=== PATIENT | female | born 1965 | race American Indian/Alaskan Native ===

== ENCOUNTER 2024-11-15 14:50 | Inpatient (IN) | payer MEDICAID ==
[~2024-11-15] VITALS: Ht 165.1 cm; Wt 74.8 kg
[~2024-11-15 14:50] MED LIST: NO HOME MEDS
--- NOTE | 2024-11-15 15:00 | ELECTROCARDIOGRAPH REPORT ---
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
[2024-11-15 15:13] LABS: BASOPHILS # (AUTO) 0.1 X10'3 (0-0.2); BASOPHILS % (AUTO) 0.5 % (0-1); EOSINOPHILS % (AUTO) 0.1 % (0-6); HEMOGLOBIN 14.6 g/dl (12.0-16.0); LYMPHOCYTES # (AUTO) 1.8 X10'3 (1.1-4.8); LYMPHOCYTES % (AUTO) 10.9 % (21-51); MEAN CORPUSCULAR HEMOGLOBIN 32.2 PG (27.0-31.0); MEAN CORPUSCULAR HGB CONC 33.9 g/dL (33.0-36.5); MEAN PLATELET VOLUME 9.2 FL (7.4-10.4); MONOCYTES # (AUTO) 0.8 X10'3 (0-0.9); NEUTROPHILS # (AUTO) 13.7 X10'3 (1.8-7.7); NEUTROPHILS % (AUTO) 83.5 % (42-75); PLATELET COUNT 189 X10'3 (140-440); RED BLOOD COUNT 4.52 X10'6 (4.20-5.60); RED CELL DISTRIBUTION WIDTH 14.9 % (11.5-14.5); WHITE BLOOD COUNT 16.4 X10'3 (4.5-11.0)
--- NOTE | 2024-11-15 15:29 | RADIOLOGY REPORT ---
CHEST RADIOGRAPH Indication: CP Technique: Single frontal view of the chest was obtained Comparison: None FINDINGS: Lines and Tubes: None Lungs: No focal consolidation. Interstitial prominence. Pleura: No effusion. No pneumothorax. Cardiomediastinal contours: Unremarkable Bones: No acute osseous abnormality. IMPRESSION: Mild pulmonary vascular congestion.
[2024-11-15 15:32] LABS: ALANINE AMINOTRANSFERASE 22 U/L (12-78); ALBUMIN 3.2 G/DL (3.4-5.0); ALKALINE PHOSPHATASE 73 IU/L (46-116); ANION GAP 11 (8-16); ASPARTATE AMINO TRANSFERASE 22 U/L (10-37); BILIRUBIN,TOTAL 0.5 MG/DL (0.1-1.0); BLOOD UREA NITROGEN 10 MG/DL (7-18); BUN/CREATININE RATIO 15.9 (10.0-20.0); CALCIUM 7.7 MG/DL (8.5-10.1); CHLORIDE 108 MMOL/L (99-107); CREATININE 0.63 MG/DL (0.40-0.90); GLUCOSE 105 MG/DL (70-104); POTASSIUM 3.8 MMOL/L (3.5-5.1); SODIUM 143 MMOL/L (135-145); TOTAL CARBON DIOXIDE 23.8 MMOL/L (24-32); TOTAL PROTEIN 6.4 G/DL (6.4-8.2); eCRCL 88 ML/MIN; eGFR > 90 ML/MIN
[2024-11-15 15:40] LABS: PRO BRAIN NATRIURETIC PEPTIDE 2027 PG/ML (0-125)
--- NOTE | 2024-11-15 17:30 | Physician Documentation ---
History of Present Illness Chief Complaint: Nausea Stated Complaint: ELEVATED TROP Time Seen by MD: 16:16 Primary Medical Doctor: Dr. Ramirez Mode of Arrival: EMS, Stretcher HPI 59 year old female presented after being transferred from [facility] in [place] after she was diagnosed with a NSTEMI. She woke up this morning and experienced an episode of abdominal discomfort, cold sweats, and nausea, and during the course of her workup she was noted to have an elevated troponin. She has a history of allergies to many anticoagulants from her prior bout with a blood clot and no heparin was started, perhaps for this reason. She denies any fevers, cough, chest pain, diarrhea. Medication Reconciliation Allergies: Coded Allergies: albuterol (Verified Allergy, Mild, UNKNOWN, 11/15/24) apixaban (Verified Allergy, Mild, UNKNOWN, 11/15/24) dabigatran etexilate (Verified Allergy, Mild, SOB, 11/15/24) rivaroxaban (Verified Allergy, Mild, UNKNOWN, 11/15/24) warfarin (Verified Allergy, Mild, SOB, 11/15/24) codeine (Verified Allergy, Unknown, 12/05/13) Miscellaneous Medications Home Med List (No Home Medications), (Reported) Past Medical History Past Medical History: Seizures Alcohol Use: None Drug Use: marijuana Lives with: Family Lives In: Home Review of Systems All Other Systems at this time: Reviewed and Negative Physical Exam Vital Signs: RN Vital Signs have been reviewed: Yes, Temperature: 98.3, Source: Oral, Heart Rate: 68, Respiratory Rate: 16, BP: 90/72, Pulse Oximetry: 95, Weight: 74.800 Oxygen Flow Rate: 0 Physical Exam HEENT: PERRL, moist oral mucosa, EOMI Pulmonary: No respiratory distress Cardiac: RRR, no murmur, rub or gallop GI: nondistended, soft, nontender, no guarding, no rebound MSK: no deformity Skin: w/d/i, no rash Neuro: alert, nonfocal Psych: normal affect Progress Results/Orders Results/Orders Orders - MARCELINO REDDING MD Chest,Single View (11/15/24 14:58) Monitor (11/15/24 14:58) Saline Lock (11/15/24 14:58) Oxygen (11/15/24 14:58) Hs Troponin I W Calculations (11/15/24 16:58) Hs Troponin I W Calculations (11/15/24 17:58) Page Hospitalist (11/15/24 ) Ct Head (11/15/24 17:21) Completed Orders - MARCELINO REDDING MD Chest,Single View (11/15/24 14:58) Cbc/Diff (11/15/24 14:58) BMP (11/15/24 14:58) PBNP (11/15/24 14:58) Electrocardiogram (11/15/24 14:58) Hs Troponin I W Calculations (11/15/24 14:58) CMP (11/15/24 14:58) Vital Signs 11/15/24 11/15/24 11/15/24 14:53 15:38 15:38 Temp 98.3 Pulse 71 68 Resp 16 16 16 B/P (MAP) 104/77 90/72 (78) Pulse Ox 95 95 O2 Flow Rate 0 0 Laboratory Tests Test 11/15/24 15:06 11/15/24 17:00 White Blood Count 16.4 H Red Blood Count 4.52 Hemoglobin 14.6 Hematocrit 43.0 Mean Corpuscular Volume 95.0 Mean Corpuscular Hemoglobin 32.2 H Mean Corpuscular Hemoglobin Concent 33.9 Red Cell Distribution Width 14.9 H Platelet Count 189 Mean Platelet Volume 9.2 Neutrophils (%) (Auto) 83.5 H Lymphocytes (%) (Auto) 10.9 L Monocytes (%) (Auto) 5.0 Eosinophils (%) (Auto) 0.1 Basophils (%) (Auto) 0.5 Neutrophils # (Auto) 13.7 H Lymphocytes # (Auto) 1.8 Monocytes # (Auto) 0.8 Eosinophils # (Auto) 0.0 Basophils # (Auto) 0.1 CBC Comment Sodium Level 143 Potassium Level 3.8 Chloride Level 108 H Carbon Dioxide Level 23.8 L Anion Gap 11 Blood Urea Nitrogen 10 Creatinine 0.63 Estimated GFR/1.73 m2 > 90 BUN/Creatinine Ratio 15.9 Glucose Level 105 H Calcium Level 7.7 L Total Bilirubin 0.5 Aspartate Amino Transf (AST/SGOT) 22 Alanine Aminotransferase (ALT/SGPT) 22 Alkaline Phosphatase 73 Troponin I High Sensitivity 2993 *H Pro-B-Type Natriuretic Peptide 2027 H Total Protein 6.4 Albumin 3.2 L Globulin 3.2 Albumin/Globulin Ratio 1.0 L Chemistry Comments Medical Decision Making Findings 59 year old female with epigastric discomfort transferred here for higher level of cardiology care. Offered to start heparin but patient and her family member were very nervous given her prior episodes of allergies to anticoagulants in the past. Indeed her troponin and BNP were elevated here today and care was transferred to the hospitalist for further workup. Her EKG was reviewed and by my interpretation demonstrated a normal sinus rhythm at a rate of 75, no STEMI criteria and no dysrhythmias noted. I am adding a CT head to her workup as on further questioning she reports a severe headache this morning. Differential Dx:Considerations: Include: Appendicitis, Cholelithasis, Esophagitis, Gastritis/PUD, Ischemic bowel, Pancreatitis, Urinary obstruction, Urinary tract infection Additional Comments Ddx includes NSTEMI, ACS/AR Departure Disposition: 09 ADMITTED INPATIENT Admitted to Inpatient Unit: to hospitalist Admission Level of Care: Med/Surg with Tele Impression: Primary Impression: NSTEMI (non-ST elevated myocardial infarction) Condition: Stable Referrals: NO PRIMARY CARE PROVIDER (PCP) Education Educated: Patient, Family Educated regarding: diagnosis, treatment, prognosis, need for follow up Signature Scribe Signature: . Attestation: . MARCELINO REDDING MD Nov 15, 2024 17:30
[2024-11-15] MEDS ORDERED: magnesium sulf-water 2g/50mL 50 ML IV PRN (18:00)
[2024-11-15] MEDS ORDERED: magnesium sulf-water 4G/100mL 100 ML IV PRN (18:00)
[2024-11-15] MEDS ORDERED: ondansetron/PF 4mg/2ml inj IV PRN (18:00)
[2024-11-15] MEDS ORDERED: acetaminophen 325mg tablet PO PRN ×2 (18:00)
[2024-11-15] MEDS ORDERED: magnesium Cl slow-release 64mg tablet PO PRN (18:00)
[2024-11-15] MEDS ORDERED: potassium Cl 40MEQ/1/2NS 520ml 520 ML IV PRN (18:00)
[2024-11-15] MEDS ORDERED: potassium Cl 20 mEq SR tablet PO PRN ×2 (18:00)
[2024-11-15] MEDS ORDERED: HYDR-3965 PO (18:04)
[2024-11-15] MEDS ORDERED: ARA20T PO (18:04)
[2024-11-15] MEDS ORDERED: ESCI-8 PO (18:05)
[2024-11-15] MEDS ORDERED: PRED5TAB PO (18:07)
[2024-11-15] MEDS ORDERED: CYCL-394 PO (18:07)
--- NOTE | 2024-11-15 18:49 | RADIOLOGY REPORT ---
CT CT HEAD Indication: headache EXAM DATE: 11/15/2024 05:49 PM COMPARISON: None TECHNIQUE: CT of the head without intravenous contrast. RADIATION DOSE: CTDIvol: 43 mGy, DLP: 709 mGy*cm FINDINGS: There is tiny amount of hyperdensity along the right frontal cerebral sulci. There is no extra-axial fluid, mass, mass effect or midline shift. The ventricles are midline and normal in size. Basilar cis terns are patent. There are mild periventricular and subcortical white matter chronic microvascular i schemic changes. The paranasal sinuses and mastoids are well-pneumatized. Imaged portion of the orbits are unremarkabl e. IMPRESSION: Tiny amount of hyperdensity along the right frontal cerebral sulci could represent artifact versus sm all amount of subarachnoid hemorrhage. Recommend MRI brain and follow-up CT head in 2-4 hours to maryam luate. Mild chronic microvascular ischemic changes.
--- NOTE | 2024-11-15 18:50 | HISTORY AND PHYSICAL-Residence ---
History & Physical Providers to Resident Creating Document: MERRY OLSON RES ~ History of Present Illness Primary Medical Doctor: Dr. Ramirez Reason for Admit\Complaint: elevated trops History of Present Illness 59-year-old female with history of rheumatoid arthritis and SLE he has been transferred from [facility] with concern of elevated troponin requiring higher level of care. Patient initially presented to the hospital at [facility] with complaints of headache, body aches diarrhea and vomiting. Denies fever, chills, chest pain, dizziness, palpitations, shortness of breath. No recent history of travel or camping. On evaluation she states she has been having lower abdominal pain x3 days. She also has associated back pain. Her last bowel movement was this morning, has been having loose stools. Recently used a course of antibiotics for UTI. She has persistent nausea and vomiting, nine episodes of vomiting in the last 24 hours. Does not drink alcohol. Smokes around pack of cigarettes for four days. Uses cannabis HS for sleeping. Discussed advanced care directives and wishes to be a full code. ED course at [facility]: Initial working diagnosis was viral gastroenteritis. Was given IV antiemetics. Labs showed marked leukocytosis negative for COVID and flu. EKG was done which showed irregular heart rate NSR with PAC. There was also T-wave inversion in V1-V2, RSR in V1 and QRS duration within normal limits. Troponin showed marked elevation 1.79. They were thinking possibility of myocarditis secondary to viral infection. She is also on chronic leflunomide and prednisolone. Possible atypical presentation of NSTEMI was also considered. Hypotension was treated with clonidine 0.1 mg. Blood cultures were obtained no antibiotics given. Was transferred to [facility] for higher level of care. Allergies: Coded Allergies: enoxaparin (Verified Allergy, Intermediate, SOB, 11/15/24) albuterol (Verified Allergy, Mild, UNKNOWN, 11/15/24) apixaban (Verified Allergy, Mild, UNKNOWN, 11/15/24) dabigatran etexilate (Verified Allergy, Mild, SOB, 11/15/24) rivaroxaban (Verified Allergy, Mild, UNKNOWN, 11/15/24) warfarin (Verified Allergy, Mild, SOB, 11/15/24) codeine (Verified Allergy, Unknown, 12/05/13) Home Medications Home Medications Active Reported Cyclobenzaprine HCl 10 Mg Tablet 5 Mg PO Q8H 30 Days Prednisone* (Prednisone) 5 Mg Tablet 1 Tab PO DAILY 30 Days Escitalopram Oxalate 10 Mg Tablet 1 Tab PO DAILY 30 Days Leflunomide 20 Mg Tablet 10 Mg PO DAILY 30 Days Cologne 5/325 MG (Acetaminophen/Hydrocodone Bitart) 5 Mg/325 Mg Tablet 1 Tab PO Q6H PRN Past Medical History Past Medical History Rheumatoid arthritis SLE Past Social History Alcohol Use: None Drug Use: Marijuana Lives with: Family Lives In: Home ROS All Other Systems: Reviewed and Negative ROS Reviewed in full. All negative except for pertinent positive HPI. Exam Vitals: Vital Signs Date Time Temp Pulse Resp B/P (MAP) Pulse Ox O2 Delivery O2 Flow Rate FiO2 11/15/24 18:09 98.3 78 16 136/81 (99) 97 0 General: General: Awake and Alert, no acute distress. HEENT: Conjunctiva pink, Sclera clear, Mucus Membranes moist. Neck: Supple without masses and tenderness. Resp: Unlabored. Equal breath sounds bilaterally. Heart: Regular rhythm, normal S1 and S2, no rub, murmur or gallop. Abdomen: Lower abdominal pain and tenderness. Normal bowel sounds x4. No guarding or rigidity Extremities: Normal ROM, no swelling, nontender. No cyanosis,clubbing or edema. 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 Skin: Warm and Dry. Diagnostic Data Last Recorded Lab Results: 11/15/24 1506 11/15/24 1506 Diagnostic Data: Laboratory Tests Test 11/15/24 15:06 D-Dimer 1.40 MG/L FEU (0-0.50) H D-Dimer Comment Advance Care Planning Advanced Care plannin - 30 Minutes Additional Plan 59-year-old female with history of rheumatoid arthritis and SLE he has been transferred from [facility] with concern of elevated troponin requiring higher level of care. Significantly elevated troponins Severe allergy to Eliquis, Xarelto, codeine, dabigatran, enoxaparin and warfarin (allergy resulting in anaphylactic shock and coding in the past) Denies chest pain, shortness of breath or palpitations EKG no ST/T-wave changes noted Troponins 2993, 3351 BNP 2026 no signs of fluid overload Dr. Quintero talked to old testament professor Dr. Blanca Ragland, has been unable to start heparin or Lovenox at this time due to concern for allergy, recommended that the alternative would be bivalirudin. At this time bivalirudin is not available at our pharmacy, working on ordering the drug. Leukocytosis Gastroenteritis Stool testing done at [facility] negative for C diff, Entamoeba, Giardia, norovirus, rotavirus, Salmonella, vibrio. She has been having nausea vomiting and diarrhea IV fluid resuscitation Empiric antibiotics IV ceftriaxone History of SLE History of rheumatoid arthritis On prednisolone and leflunomide Merry Olson MD. IM Resident PGY-2 Date of Service: Nov 15, 2024 Billing Provider: JUNIOR QUINTERO MD Common Visit Codes: 88617-[id number] INP/OBS CARE (HIGH) Secondary Visit Codes: 79134-[id number] CARE PLAN 30 MINUTES MERRY OLSON, NAHUM Nov 15, 2024 18:50 JUNIOR QUINTERO MD Nov 17, 2024 18:37
[2024-11-15] MEDS: CefTRIAXone 2gm/D5W 50ml BAG 50 ML IV ONE (19:22)
[2024-11-15] MEDS: nicotine 14mg patch - 24hr TD SCH (19:22)
[2024-11-15] MEDS: HYDROcodone/acetaminophen 5mg/325mg tablet PO PRN (19:22)
[2024-11-15] MEDS: normal saline 1000ml 1,000 ML IV SCH (19:23)
[2024-11-15 20:29] VITALS: BP 128/93; PULSE 77; TEMP 98.3; O2SAT 97
[2024-11-15 20:40] VITALS: RESP 16
--- NOTE | 2024-11-15 21:11 | RADIOLOGY REPORT ---
EXAM: CT CT HEAD INDICATION: SAH RULE OUT F/U TO SCAN EARLIER TECHNIQUE: CT of the head without intravenous contrast. Radiation Dose Information: CT Dose: CTDI volume is 40.5 mGy. Dose-length product is 665.01 mGy*cm The dose indicators for CT are the volume Computed Tomography (CT) Dose Index (CTDIvol) and the Dose Length Product (DLP), and are measured in units of mGy and mGy-cm, respectively. These indicators are not patient dose, but values generated from the CT scanner acquisition factors. The report includes radiation exposure data for exposures received during this examination. COMPARISON: CT CT HEAD on DOS: 11/15/24 FINDINGS: There is no significant change in appearance of a tiny amount of hyperdensity along the right frontal cerebral sulci, which again may be referable to artifact or trace subarachnoid hemorrhage. The ventricles, sulci and cisterns are age appropriate. The ca-white differentiation is intact. Patchy periventricular and subcortical white matter hypoattenuation is nonspecific but may be related to small vessel ischemic disease. The visualized paranasal sinuses and mastoid air cells are clear. The surrounding soft tissues and osseous structures are unremarkable. IMPRESSION: 1. No significant change in appearance of a tiny amount of hyperdensity along the right frontal cereb ral sulci, which again may be referable to artifact or trace subarachnoid hemorrhage. If clinically i ndicated, MRI may be beneficial in further assessment. 2. Microvascular changes.
--- NOTE | 2024-11-15 21:31 | CONSULTATION REPORT ---
Cardiac Consultation Report Providers to CC ~ Progress Note: 59yo woman with HTN, HLD, RA, h/o PE, tobacco use admitted to [facility], transferred for elevated troponin. Accompanied by her son. States she had a UTI last week, was treated with antibiotics for 3 days, however, states symptoms did not improve. Over the last few days has noticed increased abdominal pain, nausea, diarrhea, chills. States yesterday woke up with diarrhea, in a sweat. Denies any CP, worsening SOB, dizziness/LH, bleeding, lower-extremity edema. Subjective Subjective In the interim, states she is in more pain today due to not taking her home pain medications. Objective Vitals Vital Signs Date Time Temp Pulse Resp B/P (MAP) Pulse Ox O2 Delivery O2 Flow Rate FiO2 11/15/24 20:40 16 11/15/24 20:29 98.3 77 128/93 (105) 97 0 Lab Results: 11/15/24 1506 11/15/24 1506 Objective GENERAL: Awake, alert, NAD CV:Reg rhythm, normal rate. No murmurs LUNGS: ++Coarse BS b/l GI: +BS soft. . EXT: 2+ radial pulses, no edema PSYCH: cooperative Coagulation Studies Laboratory Tests Test 11/15/24 15:06 D-Dimer 1.40 MG/L FEU (0-0.50) H D-Dimer Comment Problem\Assessment\Plan Problems/Diagnosis: (1) Elevated troponin Assessment & Plan: Unclear etiology. Elevated trop, flat. No CP, no acute EKG changes. Has numerous allergies to anti-PLT and anticoagulation including heparin/lovenox. CT Head with concern of possible subarachnoid hemorrhage. --Recommend holding anti-PLT/anticoagulation given concerns on CT. Pending MRI brain --If no acute bleed, can attemp Bivalirudin given lovenox/heparin allergies --Cont statin, BBx if BP tolerates --Discussed with pt/son, do not wish to proceed with angiogram/anti-plt at this time MAHESH DEVRIES MD Nov 15, 2024 21:31
[2024-11-16] MEDS ORDERED: CefTRIAXone/D5W-Rocephin 1gm 50 ML IV SCH (08:00)
--- NOTE | 2024-11-16 18:02 | DISCHARGE SUMMARY-Residence ---
Discharge Summary Providers to CC Resident Creating Document: JULIETTE OLSON RES ~ Discharge Summary Admission Diagnosis: elevated troponin, lower abdomen pain , diarrhea, chronic pain syndrome Hospital Course DATE OF ADMISSION: 11/15/2024 DATE OF DISCHARGE: 11/15/2024 Hospital course same as mentioned discharge summary. Discharge Diagnosis\Comment: Significantly elevated troponins, cause unknown Severe allergy to Eliquis, Xarelto, codeine, dabigatran, enoxaparin and warfarin (allergy resulting in anaphylactic shock and coding in the past) Leukocytosis Gastroenteritis History of SLE History of rheumatoid arthritis On prednisolone and leflunomide Operations\Procedures: None Consultants: Dr. Ragland Complications: None Condition on DC: Stable Discharge Summary: As per HPI: 59-year-old female with history of rheumatoid arthritis and SLE he has been transferred from [facility] with concern of elevated troponin requiring higher level of care. Patient initially presented to the hospital at [facility] with complaints of headache, body aches diarrhea and vomiting. Denies fever, chills, chest pain, dizziness, palpitations, shortness of breath. No recent history of travel or camping. On evaluation she states she has been having lower abdominal pain x3 days. She also has associated back pain. Her last bowel movement was this morning, has been having loose stools. Recently used a course of antibiotics for UTI. She has persistent nausea and vomiting, nine episodes of vomiting in the last 24 hours. Does not drink alcohol. Smokes around pack of cigarettes for four days. Uses cannabis HS for sleeping. Discussed advanced care directives and wishes to be a full code. ED course at [facility]: Initial working diagnosis was viral gastroenteritis. Was given IV antiemetics. Labs showed marked leukocytosis negative for COVID and flu. EKG was done which showed irregular heart rate NSR with PAC. There was also T-wave inversion in V1-V2, RSR in V1 and QRS duration within normal limits. Troponin showed marked elevation 1.79. They were thinking possibility of myocarditis secondary to viral infection. She is also on chronic leflunomide and prednisolone. Possible atypical presentation of NSTEMI was also considered. Hypotension was treated with clonidine 0.1 mg. Blood cultures were obtained no antibiotics given. Was transferred to [facility] for higher level of care. Hospital course: Was not evaluation she had troponins 2993, 3351. BNP 2026 no signs of fluid overload noted. She denied chest pain, shortness of breath or palpitations. EKG showed no ST/T-wave changes. Cardiology was consulted as the patient was not able to be started on the heparin drip or Lovenox due to concern for allergy, recommended the alternative would be bivalirudin. The medication was not available at our pharmacy, contacted pharmacy on ordering the medication they were working on or drink the drug. Twos testing was done at [facility] was negative for C diff, Entamoeba, Giardia, norovirus, rotavirus, Salmonella and vibrio. She has been having nausea vomiting and diarrhea. She was adequately fluid resuscitated. Was started on empiric antibiotics IV ceftriaxone. CT head was done with findings showing concern for possible subarachnoid hemorrhage. Hence Cardiology recommended to hold anticoagulation with concerns of CT, plan was discussed with son. Possibility of cardiac angiogram/antiplatelets were discussed by Dr. Ragland with the son and he did not wish to proceed with the above. Despite explaining the risks and benefit patient did not want to say and decided to leave against medical advice. *Problems/Diagnosis: (1) Elevated troponin Total Time Spent on D/C: > 30 Minutes Date of Service: Nov 16, 2024 Billing Provider: JUNIOR PEREZ MD Common Visit Codes: 94781-UDA/OBS DISCH DAY >30min JULIETTE OLSON, NAHUM Nov 16, 2024 18:02 JUNIOR PEREZ MD Nov 17, 2024 18:37
== END 2024-11-15 22:13 | disposition left against medical advice (07) | DRG 249 ==
LOC: ER 14:51 → ED HOLD 18:13 → PCU 3S 21:56
PROVIDERS: ADMIT Internal Medicine; ATTEND Internal Medicine
DX: K52.9 Noninfective gastroenteritis and colitis, unspecified (principal); M32.9 Systemic lupus erythematosus, unspecified; D72.829 Elevated white blood cell count, unspecified; Z88.5 Allergy status to narcotic agent; I10 Essential (primary) hypertension; E78.5 Hyperlipidemia, unspecified; Z53.21 Procedure and treatment not carried out due to patient leaving prior to being seen by health care provider; R79.89 Other specified abnormal findings of blood chemistry; Z88.8 Allergy status to other drugs, medicaments and biological substances
CPT/HCPCS: 36415; 70450; 71045; 80053; 83605; 83880; 84484; 85025; 85379; 87040; 93005; 99285; G0378; J0696; J7030